=== PATIENT | female | born 1970 | race Caucasian/White ===

== ENCOUNTER 2025-09-12 10:11 | Outpatient (OUT) | payer OTHER, SELFPAY ==
--- OUTSIDE RECORDS SUMMARY | 2025-09-12 04:55 | XMS_ITS | Continuity of Care Document ---
Author Organization [facility] Address [address] [place] [address] Phone Care Team Providers Care Oxygen Equipment Preparer Name Role Phone Lea Carlson DO Primary Care Provider [phone] Lea Carlson DO Attending Provider Care Teams Patient Care Team Team Status: Active Member Role/Relationship Status Dates Lea Carlson DO Primary Care Provider Active Patient Care Team Team Status: Inactive Member Role/Relationship Status Dates Lea Carlson , DO Primary Care Provider Active S tart: September 12, 2025 End: September 12, 2025Jessbrenton Carlson DOAttending ProviderActiveStart: September 12, 2025 End: September 12, 2025 Chief Complaint and Reason for Visit Chief Complaint Admit Date new patient September 12, 2025 8 :51am Reason for Visit Admit Date Abnormal movements September 12, 2025 8 :51am Dizziness, nonspecific September 12 8:51am Seizure-like activity September 12, 2025 8:51am Allergies, Adverse Reactions, Alerts Allergen Type Severity Reaction Last Updated Verified Status Comments adhesive Allergy Unknown Unknown Reaction September 12, 2025 9:03am Yes Active bupropionAllergyUnknownunknownDecember 2024 9:03amYesActivePenicillins AllergyUnknownUnknown ReactionDecember 2024 9:03amYesActiveprednisone AllergyUnknownUnknown ReactionDecember 2024 9:03amYesActiveMental issues trazodoneAllergyUnknownUnknown ReactionDece2024 9:03amYesActive Social History Smoking Status Status Start Date End Date Date of Observa tion Never smoked tobacco (finding) September 12, 2025 9:10am Observation Status Observation Response Date of Response Legal Sex Female (finding) [facility] 1970 Problems Active Problems Problem Diagnosis/Recorded Date Onset Date Stat us Seizure-like activity September 12, 2025 9:39am Unknow n Active Rheumatoid arthritis September 12, 2025 9:08am Unknown Active Dizziness, nonspecific September 12, 2025 9:39am Unkno wn Active ADD (attention deficit disorder) September 12, 2025 9: 51am Unknown Active Chiari syndrome September 12, 2025 9:08am Unknown Active Chronic fatigue syndrome September 12, 2025 9:08am Unk nown Active Fibromyalgia September 12, 2025 9:08am Unknown Ac tive Cervical spine instability September 12, 2025 9:08am U nknown Active POTS (postural orthostatic t achycardia syndrome) September 12, 2025 9:08am Unknown Active Abnormal movements September 12, 2025 9:40am Unknown Active Poor short term memory September 12, 2025 9:50am Unkno wn Active Medications No known medications Vital Signs Vital Reading Result Reference Range Collection Date/Time Height 65 [in_i] September 12, 2025 8:17rgBkpdei49.46 kgDecember 2024 8:59amBody Temperature 98.2 [degF]97.6-99.0cemb2024 8:59amHeart Rate78 /ubn96-373Ksyasxtr 8th, 2025 8:59amRespiratory rate14 /nfc42-10Nzhiaapt 8th, 2025 8:59amOxygen saturation by Pulse qqsfetui83 %95-100ce2024 8:59amBP Fomzyqfc910 mm[Hg]100-140Decemb2024 8:59amBP Xeekedlvw44 mm[Hg]60-100Decemb2024 8:59amBMI (Body Mass Index)22.5 kg/u2Cadxpkkv2024 8:59am Advance Directives Advance Directive Response Recorded Date/ Time Advance Directives No September 12, 2025 8:49am Insurance Providers Guarantor Ashley Sahni Address [address] [place] [address] Info.Home Phone: Coverage Status Update:2025 Payer Group Member ID Coverage Type Subscriber Relationship to Subscriber Effective Date Expiration Date Sary CASTILLO [id number] E Morrison Id: [id number] [address] [place] [address] Home Phone: Encounters Encounter Location(s) Arrival/Admit Date Discharge/Departure Date Discharge/Departure Disposition Provider(s) Departed Physician/ Provider Office Visit -[facility] [place] September 12, 2025 8:51am September 12, 2025 9:50am Discharged to home care or self care (routine discharge) Lea Carlson DO Recent Diagnosis Onset Date Admit Date Abnormal movements Unknown September 12, 2025 8:51am Dizziness, nonspecific Unknown September 12, 2025 8:51am Seizure-like activity Unknown September 122024 8:51am Assessments Diagnosis Onset Date Resolution Status Admit Date Abnormal movements acuteDecember 2024 8:51amDizziness, nonspecificacuteDecember 2024 8:51amSeizure-like activityacuteDecember 2024 8:51am Plan of Treatment Future Tests Future scheduled test information is unavailable Pending Tests Test Name Ordered Date Scheduled Date Comprehensive Metabolic Panel September 12, 2025 9:46am Ethanol, UrineDecember 2024 9:46am Future Visits Future appointment information is unavailable Future Procedures Procedure Name Ordered Date Scheduled Date A1C with Estimated Average Glu September 12 9:46am Complete Blood Count Auto DiffDecemb2024 9:46amLipid PanelDecemb2024 9:46amMagnesiumDecember 2024 9:46amFree T4 (Free Thyroxine)September 12, 2025 9:46amThyroid Stimulating HormoneDecemb2024 9:46amUrinalysis September 12, 2025 9:46am Future Medications Future medication information is unavailable Patient Instructions Patient instructions are unavailable
[2025-09-12 10:37] LABS: Glucose Urine UA NEGATIVE (NEGATIVE)
[2025-09-12 10:41] LABS: Hematocrit 42.3 % (36.0-48.0); Hemoglobin 13.7 g/dL (12.0-16.0); Immature Granulocytes Abs Auto 0.03 10^3/uL (0.00-0.03); Immature Granulocytes Pct Auto 0.3 % (0.0-0.5); Lymphocytes Absolute Auto 1.5 10^3/uL (1.2-3.8); Mean Corpuscular HGB Conc 32.4 g/dL (29.9-35.2); Mean Corpuscular Hemoglobin 29.3 pg (26.7-34.0); Mean Corpuscular Volume 90.6 fL (81.0-99.0); Platelet Count 327 10^3/uL (150-450); Red Blood Count 4.67 10^6/uL (4.20-5.40); White Blood Count 9.1 10^3/uL (4.0-11.0)
[2025-09-12 12:10] LABS: Alanine Aminotransferase 25 U/L (14-59); Albumin Globulin Ratio 1.3; Albumin Level 4.3 g/dL (3.4-5.0); Alkaline Phosphatase 74 U/L (46-116); Anion Gap 11.6; Aspartate Amino Transferase 18 U/L (15-37); Blood Urea Nitrogen 11.0 mg/dL (7.0-18.0); Calcium 9.0 mg/dL (8.5-10.1); Carbon Dioxide 30.8 mmol/L (21.0-32.0); Chloride 105 mmol/L (98-107); Cholesterol 317 mg/dL (<=200); Estimated GFR (African America >60 (>=60 mL/min/1.73m^2); Estimated GFR (Non-African Ame >60 (>=60 mL/min/1.73m^2); Globulin 3.2 g/dL; Glucose 90 mg/dL (74-106); HDL Cholesterol 71 mg/dL (40-60); Magnesium 1.9 mg/dL (1.8-2.4); Potassium 3.4 mmol/L (3.5-5.1); Sodium 144 mmol/L (136-145); Thyroid Stimulating Hormone 1.379 uIU/mL (0.358-3.740); Total Protein 7.5 g/dL (6.4-8.2); Triglycerides 183 mg/dL (<=150); VLDL CHOLESTEROL 36.6 mg/dL
== END 2025-09-12 10:12 | disposition home or self-care (01) ==
PROVIDERS: PCP Family Medicine; Visit Provider Family Medicine
DX: R29.818 Other symptoms and signs involving the nervous system (principal); R42 Dizziness and giddiness; R25.9 Unspecified abnormal involuntary movements; G90.A Postural orthostatic tachycardia syndrome [POTS]
CPT/HCPCS: 36415; 80053; 80061; 80307; 81003; 83036; 83735; 84439; 84443; 85025